=== PATIENT | female | born 1940 | race Caucasian/White ===

== ENCOUNTER 2020-06-20 01:41 | Inpatient (IN) | payer MEDICARE ==
[~2020-06-20] VITALS: Ht 149.9 cm; Wt 64.8 kg
[2020-06-20] MEDS ORDERED: LOSA25 PO (02:06)
[2020-06-20] MEDS ORDERED: CARV25 PO (02:07)
[2020-06-20] MEDS ORDERED: ATOR20 PO (02:07)
[2020-06-20] MEDS ORDERED: ASPI81CH PO (02:07)
[2020-06-20 04:33] LABS: BASOPHILS ABSOLUTE AUTO 0.04 K/mm3 (0.00-0.23); BASOPHILS PERCENT AUTO 1 % (0-2); EOSINOPHILS ABSOLUTE AUTO 0.21 K/mm3 (0.00-0.68); EOSINOPHILS PERCENT AUTO 3 % (0-6); Hematocrit 32.2 % (33.0-51.0); Hemoglobin 10.3 g/dL (11.5-16.0); IMMATURE GRAN ABSOLUTE AUTO 0.03 K/mm3 (0.00-0.10); IMMATURE GRAN PERCENT AUTO 0 % (0-1); LYMPHOCYTES ABSOLUTE AUTO 2.11 K/mm3 (0.84-5.20); LYMPHOCYTES PERCENT AUTO 27 % (21-46); MONOCYTES ABSOLUTE AUTO 0.92 K/mm3 (0.16-1.47); MONOCYTES PERCENT AUTO 12 % (4-13); Mean Corpuscular HGB 32.8 pg (26.0-34.0); Mean Corpuscular Volume 103 fL (80-100); Mean Platelet Volume 10.7 fL (9.1-12.4); NEUTROPHILS ABSOLUTE AUTO 4.41 K/mm3 (1.96-9.15); NEUTROPHILS PERCENT AUTO 57 % (41-73); Platelet Count 202 K/mm3 (150-400); RDW Coefficient Variation 13.3 % (11.7-14.2); RDW Standard Deviation 50.5 fL (35.1-46.3); Red Blood Cell Count 3.14 M/mm3 (3.80-5.20); White Blood Cell Count 7.72 K/mm3 (4.00-11.30)
[2020-06-20 04:53] LABS: Bun/Creatinine Ratio 23.2 (12.0-20.0); Calcium, Blood 9.1 mg/dL (8.5-10.1); Creatinine, Blood 1.12 mg/dL (0.40-1.00); Potassium, Blood 5.7 mmol/L (3.5-5.5); Troponin I 0.085 ng/mL (0.000-0.040)
[2020-06-20 08:25] LABS: Bun/Creatinine Ratio 25.2 (12.0-20.0); Calcium, Blood 9.5 mg/dL (8.5-10.1); Creatinine, Blood 0.99 mg/dL (0.40-1.00); Potassium, Blood 5.7 mmol/L (3.5-5.5)
--- NOTE | 2020-06-20 09:38 | NUR ---
ASUMMED PATIENT CARE. PATIENT TRANSFERED FROM ED VIA GURNEY, ABLE TO TRANSFER TO BED INDEPENDENTLY. NO SIGNS OF ACUTE DISTRESS, PATIENT DENIES CHEST PAIN.
[2020-06-20] MEDS ORDERED: VIT C-ROSE HIP500 MG PO (09:46)
[2020-06-20] MEDS ORDERED: MAGNESIUM OXID500 MG PO (09:47)
[2020-06-20] MEDS ORDERED: CALCIUM 600 +1 EA11 PO (09:47)
[2020-06-20] MEDS ORDERED: FLAXSEED1000 MG PO (09:48)
[2020-06-20] MEDS ORDERED: ACET500 PO (09:49)
[2020-06-20] MEDS ORDERED: NITR.4SL SL (10:17)
--- NOTE | 2020-06-20 15:00 | NUR ---
ASSUMED PT CARE ASSUMED PT CARE AT 1500.
[2020-06-20 15:45] LABS: International Normalized Ratio 1.09; Prothrombin Time Results 11.6 Sec (9.7-11.5)
--- NOTE | 2020-06-20 18:14 | NUR ---
SHIFT SUMMARY PT ALERT AND ORIENTED. PT REPORTS CP IS GONE. HR STABLE. BP HYPERTENSIVE. MEDICATIONS GIVEN PER EMAR. HEPARIN GTT. OXYGEN SATURATION ABOVE 92% ON RA. NO BP IN PT'S R ARM D/T MASTECTOMY. WILL CONTINUE TO MONITOR UNTIL REPORT GIVEN TO NIGHTSHIFT RN.
--- NOTE | 2020-06-20 22:25 | NUR ---
[facility] CALLED TO NOTIFY AT 2057 OF CRITICAL LAB: APTT, 129.9. THIS RN NOTIFIED PHARMACY OF CRITICAL LAB [facility] WITH INSTRUCTIONS TO HOLD HEPARIN DRIP FOR 1 HOUR, THEN RESUME AT A DECREASED RATE. HEPARIN DRIP WAS ON STANDBY FOR 1 HOUR. NOW RESUMED AT NEW DECREASED RATE PER EMAR.
[2020-06-21 05:05] LABS: BASOPHILS ABSOLUTE AUTO 0.06 K/mm3 (0.00-0.23); BASOPHILS PERCENT AUTO 1 % (0-2); EOSINOPHILS PERCENT AUTO 5 % (0-6); Hematocrit 31.9 % (33.0-51.0); Hemoglobin 10.1 g/dL (11.5-16.0); IMMATURE GRAN ABSOLUTE AUTO 0.03 K/mm3 (0.00-0.10); IMMATURE GRAN PERCENT AUTO 1 % (0-1); LYMPHOCYTES ABSOLUTE AUTO 2.05 K/mm3 (0.84-5.20); LYMPHOCYTES PERCENT AUTO 32 % (21-46); MONOCYTES ABSOLUTE AUTO 0.92 K/mm3 (0.16-1.47); MONOCYTES PERCENT AUTO 15 % (4-13); Mean Corpuscular HGB 32.4 pg (26.0-34.0); Mean Corpuscular HGB Conc 31.7 g/dL (31.5-36.5); Mean Corpuscular Volume 102 fL (80-100); Mean Platelet Volume 11.1 fL (9.1-12.4); NEUTROPHILS ABSOLUTE AUTO 2.99 K/mm3 (1.96-9.15); NEUTROPHILS PERCENT AUTO 47 % (41-73); Platelet Count 211 K/mm3 (150-400); RDW Coefficient Variation 13.6 % (11.7-14.2); RDW Standard Deviation 50.4 fL (35.1-46.3); Red Blood Cell Count 3.12 M/mm3 (3.80-5.20); White Blood Cell Count 6.35 K/mm3 (4.00-11.30)
[2020-06-21 05:30] LABS: Albumin, Blood 3.2 g/dL (3.4-5.0); Albumin/Globulin Ratio 0.9 (0.8-1.8); Bilirubin, Total 0.5 mg/dL (0.1-1.0); Calcium, Blood 8.7 mg/dL (8.5-10.1); Globulin, Blood 3.5 g/dL (2.2-4.0); Potassium, Blood 4.5 mmol/L (3.5-5.5); Total Protein, Blood 6.7 g/dL (6.4-8.2)
--- NOTE | 2020-06-21 05:51 | NUR ---
SHIFT SUMMARY NO ACUTE CHANGES THIS SHIFT. PT A&OX4. PT PLEASANT, COOPERATIVE. SP02>92% ON RA. TELEMETRY READS SR, HR 60'S. PT DENIED CHEST PAIN/PRESSURE T/O SHIFT. PT AMBULATED TO BATHROOM WITH MINIMAL ASSISTANCE AND DENIED SOB. PT IS CURRENTLY NPO AWAITING STRESS TEST IN AM. HEPARIN INFUSING PER EMAR. 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 PT SLEPT T/O THE NIGHT. CALL LIGHT IN REACH. WILL CONTINUE TO MONITOR UNTIL END OF SHIFT.
--- NOTE | 2020-06-21 07:10 | NUR ---
ASSUMED PATIENT CARE. PATIENT IN BATHROOM WITH PACKING ROOM INSPECTOR, HEPARIN INFUSING. PATIENT CONVERSING WITH NURSING STAFF, NO SIGNS OF ACUTE DISTRESS, WCTM.
[2020-06-21 10:33] LABS: CHOL/HDL RATIO 1.9; Cholesterol 142 mg/dL (50-200); HDL Cholesterol 74 mg/dL (>39); LDL/HDL RATIO 0.7; Low Density Lipoprotein Chol 55 mg/dL (0-110); Triglycerides 66 mg/dL (30-160); Very Low Density Lipoprot Chol 13 mg/dL (6-32)
--- NOTE | 2020-06-21 11:52 | NUR ---
Patient is lying in bed and alert. Patient's spouse, Viktor, is bedside. 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 Patient and Viktor talk about what they saw as they have served everywhere from [facility] to [facility]. Patient says that she is feeling much better and is ready to go home if all the tests have a good result. I listen empathically, reinforce helpful attitudes and practices and provide prayer. Patient and Viktor respond well and show signs of an elevated mood. I will continue to remain available to patient and family.
--- NOTE | 2020-06-21 16:50 | NUR ---
PATIENT COMPLETED 1 DAY STRESS TEST TODAY. PATIENT HAD EPISODE OF CRUSHING CHEST PAIN AND CHEST PRESSURE DURING STRESS TEST. DR JENSEN AT BEDSIDE DURING EPISODE, DR. CORDOVA NOTIFIED AND CAME TO BEDSIDE. 12 LEAD EKG DONE, ORDER FOR NITRO GIVEN. DUE TO RELIEF OF CHEST PAIN FROM ADMINISTRATION OF REVERSAL AGENT GIVEN BY RN CONDUCTING STRESS TEST, NITRO WAS NOT ADMINISTERED. TELEMETRY SHOWED ST DEPRESSION DURING THIS EPISODE THAT RESOLVED AFTER REVERSAL AGENT WAS GIVEN. HEPARIN GTT DISCONTINUED PER DR. CORDOVA THIS SHIFT. PATIENT REMAINS ALERT AND ORIENTED, AT BEDSIDE, INDEPENDENT IN ROOM. ON ROOM AIR, VSS.
[2020-06-22 04:23] LABS: Hematocrit 33.6 % (33.0-51.0); Hemoglobin 10.7 g/dL (11.5-16.0); Mean Corpuscular HGB 32.7 pg (26.0-34.0); Mean Corpuscular HGB Conc 31.8 g/dL (31.5-36.5); Mean Corpuscular Volume 103 fL (80-100); Mean Platelet Volume 10.8 fL (9.1-12.4); Platelet Count 205 K/mm3 (150-400); RDW Coefficient Variation 13.6 % (11.7-14.2); RDW Standard Deviation 51.9 fL (35.1-46.3); Red Blood Cell Count 3.27 M/mm3 (3.80-5.20); White Blood Cell Count 6.16 K/mm3 (4.00-11.30)
[2020-06-22 04:38] LABS: Albumin, Blood 3.4 g/dL (3.4-5.0); Anion Gap 5 mmol/L (6-16); Blood Urea Nitrogen 28 mg/dL (8-24); Bun/Creatinine Ratio 24.3 (12.0-20.0); CO2, Blood 27 mmol/L (21-32); Calcium, Blood 9.3 mg/dL (8.5-10.1); Chloride, Blood 106 mmol/L (98-108); Creatinine, Blood 1.15 mg/dL (0.40-1.00); Glomerular Filtration Rate 48 (60-); Glucose, Blood 102 mg/dL (70-99); Phosphorus, Blood 4.2 mg/dL (2.5-4.9); Potassium, Blood 4.4 mmol/L (3.5-5.5); Sodium, Blood 138 mmol/L (136-145)
--- NOTE | 2020-06-22 05:58 | NUR ---
SHIFT SUMMARY NO ACUTE CHANGES THIS SHIFT. PT A&OX4. SP02>92% ON RA. TELEMETRY READS SR, HR 50'S-60'S. PT DENIES CP/PRESSURE. DENIES SOB. PT AMBULATED TO BATHROOM INDEPENDENTLY AT BEGINNING OF SHIFT. PT STATES SHE IS IN NO PAIN AND SLEPT T/O SHIFT. PT NPO AT MIDNIGHT FOR AM PROCEDURE. WILL CONTINUE TO MONITOR UNTIL END OF SHIFT.
--- NOTE | 2020-06-22 07:32 | NUR ---
ASSUMED PATIENT CARE. PATIENT SLEEPING COMFORTABLY IN BED, NO SIGNS OF ACUTE DISTRESS, WCTM.
--- NOTE | 2020-06-22 12:00 | NUR ---
PT ARRIVED TO ICU 10 FROM MANAGER OF ADMINISTRATION. PT HAD BEEN IN PCU 5 PRIOR. PT WAS TRANSFERED IN TO ICU D/T NEEDING TO GO TO HIGHER LEVEL OF CARE FOR CABG. PT IS A/O X4. PINK, WARM AND DRY SKIN. VSS. DENIES CP OR SOB. HAS TR BAND TO R RADIAL WITH ARMBOARD IN PLACE. SITE IS STABLE, NO S/S OF BLEEDING. DR. CORDOVA IS WORKING ON TRANSFER DETAILS. AT BEDSIDE AND UPDATED.
--- NOTE | 2020-06-22 12:19 | NUR ---
REPORT GIVEN TO CHRISTINE LEBRON IN ICU.
--- NOTE | 2020-06-22 14:18 | NUR ---
REPORT GIVEN TO AMBER LEBRON AT [facility]. PT WILL TRANSPORTED BY AMBULANCE. REMOVED 2CC OF AIR FROM TR BAND WITHOUT ISSUE. PT IS RESTING COMFORTABLEY IN BED, NO CP OR SOB.
--- NOTE | 2020-06-22 14:45 | NUR ---
PT LEFT VIA AMBULANCE. TR BAND IN PLACE WITH 8CC OF AIR STILL IN IT. SITE LOOKED AT WITH AMBULANCE CREW AND SYRINGE ATTACHED TO ARMBOARD. NO SIGN OF DISTRESS.
== END 2020-06-22 14:49 | disposition short-term general hospital (02) | DRG 281 ==
LOC: ER 01:41 → PCU 01:42 → ICUW 06-22 11:58
PROVIDERS: Internal Medicine; Pharmacist; Student in an Organized Health Care Education/Training Program; ADMIT Internal Medicine
PROC: 4A023N7 Measurement of Cardiac Sampling and Pressure, Left Heart, Percutaneous Approach (ICD-10-PCS; principal; 2020-06-22)
PROC: B2111ZZ Fluoroscopy of Multiple Coronary Arteries using Low Osmolar Contrast (ICD-10-PCS; 2020-06-22)
DX: I21.4 Non-ST elevation (NSTEMI) myocardial infarction (principal); N17.9 Acute kidney failure, unspecified; Z79.82 Long term (current) use of aspirin; Z95.5 Presence of coronary angioplasty implant and graft; I25.10 Atherosclerotic heart disease of native coronary artery without angina pectoris; I16.0 Hypertensive urgency; I11.0 Hypertensive heart disease with heart failure; E87.5 Hyperkalemia; Z85.3 Personal history of malignant neoplasm of breast; Z92.3 Personal history of irradiation; R73.03 Prediabetes
CPT/HCPCS: 36415; 71045; 71260; 76937; 78452; 80048; 80053; 80061; 80069; 83880; 84484; 85025; 85027; 85347; 85379; 85610; 85730; 93005; 93010; 93017; 93306; 93458; 96374; 96375; 96376; 99152; 99153; 99284-25; A9270-GY; A9500; C1769; C1894; G0378; J0280; J1644; J2250; J2785; J3010; J7030; Q9967; U0004